=== PATIENT | male | born 1965 | race Asian ===

== ENCOUNTER 2020-03-25 13:06 | Outpatient (CLI) | payer SELFPAY ==
--- NOTE | 2020-03-25 13:36 | XRAY Report ---
PROCEDURE: Chest 2 View X-Ray INDICATIONS: COUGH TECHNIQUE: 2 view(s) of the chest. COMPARISON: None. FINDINGS: Surgical changes and devices: None. Lungs and pleura: There is a large right pleural effusion. The upper portion of the right lung remain s partially aerated. Consolidation is present in the mid and lower lung. The left lung is clear. No p neumothorax. Mediastinum: Mediastinal contours are normal. Heart size is normal. Bones and chest wall: No suspicious bony abnormalities. Soft tissues appear unremarkable. IMPRESSION: 1. Large right pleural effusion and consolidation of the mid and lower right lung. No prior studies a re available for comparison to determine the acuity of this finding. Differential considerations incl ude underlying neoplasm and pneumonia and subpulmonic effusion. These results were discussed with BROOKE Cuellar to Mariposa Bernard at 1:31 PM on 03/25/2020 Reviewed by: Lisa Beard MD on 03/25/2020 1:35 PM PDT Approved by: Lisa Beard MD on 03/25/2020 1:35 PM PDT Station ID: [id number]
== END 2020-03-25 13:07 | disposition home or self-care (01) ==
LOC: DI 13:06
PROVIDERS: ATTEND Physician Assistant
DX: J90 Pleural effusion, not elsewhere classified (principal); J18.1 Lobar pneumonia, unspecified organism
CPT/HCPCS: 71046

== ENCOUNTER 2020-04-23 09:48 | Outpatient (CLI) | payer SELFPAY ==
--- NOTE | 2020-04-23 12:03 | CT Report ---
PROCEDURE: CHEST WO INDICATIONS: ABN CHEST XRAY TECHNIQUE: Noncontrast 5 mm thick sections acquired from the pulmonary apices to the posterior costophrenic angl es. 7 mm thick coronal and sagittal MIP reformats were then acquired. For radiation dose reduction, the following was used: automated exposure control, adjustment of mA and/or kV according to patient size. COMPARISON: Chest radiograph dated 03/25/2020. FINDINGS: Image quality: Excellent. Large loculated appearing right pleural effusion is noted. There is suggestion of marked pleural thic kening although would be better evaluated with contrast-enhanced images. There is scattered adjacent atelectasis No left pleural effusion. No pneumothorax. No pleural effusions or pneumothorax. There is presumed de bris seen within the bronchus intermedius and right lower lobe bronchi. Mediastinum: Heart size is normal. Coronary artery calcifications are noted. No pericardial effusi on. Borderline enlarged right paratracheal lymph nodes. Evaluation for lymphadenopathy is suboptimal secondary to absence of IV contrast. Thoracic aorta and central pulmonary arteries are normal in size . Esophagus is normal in caliber. No hiatal hernia. Bones and chest wall: No suspicious bony lesions. No vertebral body compression fractures. No axil munira or supraclavicular adenopathy by size criteria. Thyroid unremarkable. Abdomen: Visualized upper abdominal solid organs and bowel loops appear normal in the absence of con trast. IMPRESSION: Large loculated right pleural effusion with adjacent atelectasis, and suggestion of diffuse marked pl eural thickening. Presumed intraluminal debris within the bronchus intermedius and right lower lobe airways although th is could be confirmed with repeat imaging after treatment versus bronchoscopic evaluation as clinical ly necessary. Additional chronic and incidental findings as above. Reviewed by: Flynn Reed MD on 04/23/2020 12:02 PM PDT Approved by: Flynn Reed MD on 04/23/2020 12:02 PM PDT Station ID: [id number]
== END 2020-04-23 09:49 | disposition home or self-care (01) ==
LOC: DI 09:48
PROVIDERS: ATTEND Physician Assistant
DX: R05 Cough (principal); R91.8 Other nonspecific abnormal finding of lung field; J90 Pleural effusion, not elsewhere classified
CPT/HCPCS: 71250

== ENCOUNTER 2022-01-05 10:28 | Outpatient (CLI) | payer MEDICAID ==
[2022-01-05 12:26] LABS: ALBUMIN 4.1 g/dL (3.2-5.5); ALBUMIN/GLOBULIN RATIO 0.9 (1.0-2.2); BILIRUBIN,TOTAL 0.6 mg/dL (0.2-1.0); CALCIUM 9.2 mg/dL (8.5-10.3); CREATININE 0.8 mg/dL (0.6-1.2); POTASSIUM 3.8 mmol/L (3.5-5.0); TOTAL PROTEIN 8.6 g/dL (6.7-8.2)
== END 2022-01-05 10:29 | disposition home or self-care (01) ==
LOC: LAB.N 10:28
PROVIDERS: ATTEND Internal Medicine Hematology & Oncology
DX: C34.90 Malignant neoplasm of unspecified part of unspecified bronchus or lung (principal)
CPT/HCPCS: 36415; 80053

== ENCOUNTER 2022-12-13 15:53 | Outpatient (CLI) | payer MEDICAID | END 2022-12-13 15:54 | disposition E | LOC: EMS 15:53 ==